=== PATIENT | male | born 1960 | race Two or more races ===

== ENCOUNTER 2023-04-22 09:59 | Outpatient (RCR) | payer OTHER, MEDICARE, SELFPAY | END 2023-04-22 23:59 | disposition home or self-care (01) | LOC: RPT 09:59 | PROVIDERS: ATTENDING PHYSICIAN Orthopaedic Surgery; PRIMARYCARE PHYSICIAN Internal Medicine | DX: M75.41 Impingement syndrome of right shoulder (principal) | CPT/HCPCS: 97010; 97110; 97140 ==

== ENCOUNTER 2023-05-12 16:26 | Outpatient (RCR) | payer OTHER, SELFPAY | END 2023-05-12 23:59 | disposition home or self-care (01) | LOC: RPT 16:26 | PROVIDERS: ATTENDING PHYSICIAN Orthopaedic Surgery; PRIMARYCARE PHYSICIAN Internal Medicine | DX: M75.41 Impingement syndrome of right shoulder (principal); Z73.6 Limitation of activities due to disability; M25.511 Pain in right shoulder | CPT/HCPCS: 97110 ==

== ENCOUNTER 2023-07-01 12:57 | Outpatient (RCR) | payer OTHER, SELFPAY | END 2023-07-01 23:59 | disposition home or self-care (01) | LOC: RPT 12:57 | PROVIDERS: ATTENDING PHYSICIAN Orthopaedic Surgery; PRIMARYCARE PHYSICIAN Internal Medicine | DX: M75.41 Impingement syndrome of right shoulder (principal); Z73.6 Limitation of activities due to disability; M25.511 Pain in right shoulder | CPT/HCPCS: 97110 ==

== ENCOUNTER → 2023-07-06 10:11 | Outpatient (REF) | payer OTHER, SELFPAY | LOC: DHCBC HW 10:11 | PROVIDERS: ATTENDING PHYSICIAN Internal Medicine Cardiovascular Disease; FAMILY PHYSICIAN Internal Medicine | DX: I10 Essential (primary) hypertension (principal); R06.09 Other forms of dyspnea; R07.89 Other chest pain; I77.810 Thoracic aortic ectasia | CPT/HCPCS: 93306 ==

== ENCOUNTER 2024-04-03 15:01 | Outpatient (RCR) | payer OTHER, SELFPAY | END 2024-04-03 23:59 | disposition home or self-care (01) | LOC: RPT 15:01 | PROVIDERS: ATTENDING PHYSICIAN Orthopaedic Surgery; FAMILY PHYSICIAN Internal Medicine | DX: Z47.89 Encounter for other orthopedic aftercare (principal); M25.511 Pain in right shoulder; Z73.6 Limitation of activities due to disability; M62.81 Muscle weakness (generalized) | CPT/HCPCS: 97010; 97110; 97140; 97161 ==

== ENCOUNTER 2024-05-09 14:05 | Outpatient (RCR) | payer OTHER, SELFPAY | END 2024-05-09 23:59 | disposition home or self-care (01) | LOC: RPT 14:05 | PROVIDERS: ATTENDING PHYSICIAN Orthopaedic Surgery; FAMILY PHYSICIAN Internal Medicine | DX: M25.511 Pain in right shoulder (principal); Z47.89 Encounter for other orthopedic aftercare (principal); Z73.6 Limitation of activities due to disability; M62.81 Muscle weakness (generalized) | CPT/HCPCS: 97110; 97140 ==

== ENCOUNTER 2024-06-08 15:00 | Outpatient (RCR) | payer OTHER, SELFPAY | END 2024-06-08 23:59 | disposition home or self-care (01) | LOC: RPT 15:00 | PROVIDERS: ATTENDING PHYSICIAN Orthopaedic Surgery; FAMILY PHYSICIAN Internal Medicine | DX: Z47.89 Encounter for other orthopedic aftercare (principal); M25.511 Pain in right shoulder (principal); Z73.6 Limitation of activities due to disability; M62.81 Muscle weakness (generalized) | CPT/HCPCS: 97110; 97140 ==

== ENCOUNTER → 2024-06-08 16:31 | Outpatient (REF) | payer OTHER, SELFPAY | LOC: RAD 16:31 | PROVIDERS: ATTENDING PHYSICIAN Allergy & Immunology; FAMILY PHYSICIAN Internal Medicine | DX: J45.20 Mild intermittent asthma, uncomplicated (principal); J30.1 Allergic rhinitis due to pollen | CPT/HCPCS: 71046 ==

== ENCOUNTER 2024-07-06 15:06 | Outpatient (RCR) | payer OTHER, SELFPAY | END 2024-07-06 23:59 | disposition home or self-care (01) | LOC: RPT 15:06 | PROVIDERS: ATTENDING PHYSICIAN Orthopaedic Surgery; FAMILY PHYSICIAN Internal Medicine | DX: Z47.89 Encounter for other orthopedic aftercare (principal); M25.511 Pain in right shoulder; Z73.6 Limitation of activities due to disability; M62.81 Muscle weakness (generalized) | CPT/HCPCS: 97110; 97140 ==

== ENCOUNTER → 2024-07-10 10:10 | Outpatient (REF) | payer OTHER, SELFPAY | LOC: RCS 10:10 | PROVIDERS: ATTENDING PHYSICIAN Internal Medicine Cardiovascular Disease; FAMILY PHYSICIAN Internal Medicine | DX: I77.810 Thoracic aortic ectasia (principal) | CPT/HCPCS: 93306 ==